=== PATIENT | female | born 1980 ===

== ENCOUNTER → 2018-06-01 | Outpatient (CLI) | payer OTHER ==
--- NOTE | 2018-06-01 11:46 | MM ---
Reason for exam: clinical finding. History: Family history of breast cancer in mother at age 50 and breast cancer in grandmother at age 50. Pre-pectoral saline implants in both breasts, 2008. Indicated problem(s): lump or thickening in the left breast. Physical Findings: Nurse Summary: 0.5 x 0.5cm nodule in the left breast at 3 o'clock (nurse ts). [facility] Diag Mamm Implants JARRETT w CAD Bilateral CC, MLO, and ID view(s) were taken. The breast tissue is heterogeneously dense. This may lower the sensitivity of mammography. There is no discrete abnormality. Bilateral saline implants. Some dystrophic calcifications on the right. These results were verbally communicated with the patient and result sheet given to the patient on 06/01/18. ASSESSMENT: Incomplete: need additional imaging evaluation, BI-RAD 0 RECOMMENDATION: Ultrasound of the left breast. (for palpable)
--- NOTE | 2018-06-01 11:47 | USB ---
Reason for exam: additional evaluation requested from abnormal screening. History: Family history of breast cancer in mother at age 50 and breast cancer in grandmother at age 50. Pre-pectoral saline implants in both breasts, 2008. US Breast LT Left complete breast ultrasound includes all four quadrants, the retroareolar region and axilla. Finding demonstrates a 0.6 x 0.5 x 0.2cm oval, cystic lesion at 2 o'clock, corresponds to the palpable, benign. Breast implant seen. These results were verbally communicated with the patient and result sheet given to the patient on 06/01/18. ASSESSMENT: Benign, BI-RAD 2 RECOMMENDATION: Routine screening mammogram of both breasts in 1 year.
== END ==
LOC: RADMAMWWP 08:06
PROVIDERS: ATTEND Nurse Practitioner Family
DX: N63.20 Unspecified lump in the left breast, unspecified quadrant (principal)
CPT/HCPCS: 77066